=== PATIENT | male | born 1990 | race Caucasian/White ===

== ENCOUNTER 2016-11-02 17:22 | Emergency (ER) | payer OTHER ==
[~2016-11-02] VITALS: Ht 177.8 cm; Wt 75.0 kg
[~2016-11-02 17:22] MED LIST: LORT7.5T3; VALT1TAB26; ZOVI800T13
[2016-11-02 17:24] VITALS: BP 148/81; PULSE 57; RESP 17; TEMP 97.6; O2SAT 100
[2016-11-02] MEDS ORDERED: SODIUM CHLOR 0.9% 1000 ML INJ 1,000 ML IV ONE ×3 (18:25→20:15)
[2016-11-02] MEDS ORDERED: HYDROmorphone HCL PF 1 MG/ML VIAL IVS ONE (18:30)
[2016-11-02] MEDS ORDERED: ONDANSETRON HCL 4 MG/2 ML VIAL IVP ONE (18:30)
[2016-11-02] MEDS ORDERED: SODIUM CHLORIDE 0.9% FLUSH 10 ML FLUSH IVF PRN (18:30)
[2016-11-02 18:43] LABS: AUTOMATED NEUTROPHIL # 11.3 TH/MM3 (1.8-7.7); BASOPHIL # 0.1 TH/MM3 (0-0.2); BASOPHIL % 0.4 % (0.0-2.0); EOSINOPHIL # 0.2 TH/MM3 (0-0.4); EOSINOPHIL % 1.1 % (0.0-4.0); HEMATOCRIT 42.5 % (39.0-51.0); HEMO FLAGS DIFF FINAL; LYMPH % 8.7 % (9.0-44.0); LYMPHOCYTE # 1.2 TH/MM3 (1.0-4.8); MEAN CELL VOLUME 88.7 FL (80.0-100.0); MEAN CORPUSCULAR HEMOGLOBIN 29.6 PG (27.0-34.0); MEAN CORPUSCULAR HGB CONC 33.4 % (32.0-36.0); MONO % 6.8 % (0.0-8.0); PLATELET COUNT 162 TH/MM3 (150-450); RED BLOOD COUNT 4.79 MIL/MM3 (4.50-5.90); WHITE BLOOD COUNT 13.6 TH/MM3 (4.0-11.0)
[2016-11-02 19:38] LABS: BICARBONATE 27.6 MEQ/L (21.0-32.0); POTASSIUM 4.4 MEQ/L (3.5-5.1)
--- NOTE | 2016-11-02 19:46 | PD ---
HPI Chief Complaint: Flank/Kidney Pain Time Seen by Provider: 17:58 Travel History International Travel<30 days: No Contact w/Intl Traveler<30days: No Traveled to known affect area: No History of Present Illness HPI This is a 26-year-old gentleman with history of Olea sarcoma of the right rib, who presents today with complaint of left sided flank pain with radiation to his groin. Patient reports that came on suddenly yesterday. He reports it as a sharp stabbing pain. He reports associated nausea and vomiting. There is no reported fevers, chills. There are no other symptoms. The patient denies any changes in his urine output or color. PFSH Past Medical History Autoimmune Disease: No Blood Disorders: No Anxiety: No Depression: No Cancer: Yes (OLEA SARCOMA) Cardiovascular Problems: No Genitourinary: No Neurologic: No Psychiatric: No Respiratory: No Sickle Cell Disease: No Tetanus Vaccination: < 5 Years Past Surgical History Abdominal Surgery: Yes (INGUENIAL HERNEA) Cardiac Surgery: No Ear Surgery: No Endocrine Surgery: No Eye Surgery: No Genitourinary Surgery: No Gynecologic Surgery: No Neurologic Surgery: No Oral Surgery: No Thoracic Surgery: No Other Surgery: Yes (hypospadius,ing hernia, frozen section) Social History Alcohol Use: No Tobacco Use: No Substance Use: No Allergies-Medications (Allergen,Severity, Reaction): Coded Allergies: No Known Allergies (Verified , 11/02/16) Reported Meds & Prescriptions Reported Meds & Active Scripts Active Lortab (Hydrocodone-Acetaminophen) 5-325 Mg Tab 1 Tab PO Q6H PRN Flomax (Tamsulosin HCl) 0.4 Mg Cap 0.4 Mg PO HS Review of Systems Except as stated in HPI: all other systems reviewed are Neg General / Constitutional: No: Chills Gastrointestinal: Positive: Nausea, Vomiting Musculoskeletal: Positive: Pain (left flank pain), No: Myalgias Physical Exam Narrative GENERAL: Well-nourished, well-developed patient. SKIN: Focused skin assessment warm/dry. HEAD: Normocephalic atraumatic. EYES: No scleral icterus. No injection or drainage. NECK: Supple, trachea midline. CARDIOVASCULAR: Regular rate and rhythm without murmurs, gallops, or rubs. RESPIRATORY: Breath sounds equal bilaterally. No accessory muscle use. GASTROINTESTINAL: Abdomen soft, non-tender, nondistended. BACK: Nontender without obvious deformity. No no true CVA tenderness. NEUROLOGICAL: Awake and alert. Cranial nerves II through XII intact. Motor grossly within normal limits. Five out of 5 muscle strength in all muscle groups. Normal speech. Data Data Last Documented VS Vital Signs Date Time Temp Pulse Resp B/P Pulse Ox O2 Delivery O2 Flow Rate FiO2 11/02/16 20:20 78 20 132/80 99 11/02/16 17:24 97.6 Orders Complete Blood Count With Diff (11/02/16 18:25) Basic Metabolic Panel (Bmp) (11/02/16 18:25) Urinalysis - C+S If Indicated (11/02/16 18:25) Ecg Monitoring (11/02/16 18:25) Iv Access Insert/Monitor (11/02/16 18:25) Ondansetron Inj (Zofran Inj) (11/02/16 18:30) Sodium Chloride 0.9% Flush (Ns Flush) (11/02/16 18:30) Sodium Chlor 0.9% 1000 Ml Inj (Ns 1000 M (11/02/16 18:25) Hydromorphone Pf Inj (Dilaudid Pf Inj) (11/02/16 18:30) Sodium Chlor 0.9% 1000 Ml Inj (Ns 1000 M (11/02/16 19:15) Sodium Chlor 0.9% 1000 Ml Inj (Ns 1000 M (11/02/16 20:15) Ct Abd/Pel W/O Iv Contrast (11/02/16 20:11) Tamsulosin (Flomax) (11/02/16 21:15) Labs Laboratory Tests Test 11/02/16 11/02/16 18:35 19:40 White Blood Count 13.6 TH/MM3 Red Blood Count 4.79 MIL/MM3 Hemoglobin 14.2 GM/DL Hematocrit 42.5 % Mean Corpuscular Volume 88.7 FL Mean Corpuscular Hemoglobin 29.6 PG Mean Corpuscular Hemoglobin 33.4 % Concent Red Cell Distribution Width 13.0 % Platelet Count 162 TH/MM3 Mean Platelet Volume 9.1 FL Neutrophils (%) (Auto) 83.0 % Lymphocytes (%) (Auto) 8.7 % Monocytes (%) (Auto) 6.8 % Eosinophils (%) (Auto) 1.1 % Basophils (%) (Auto) 0.4 % Neutrophils # (Auto) 11.3 TH/MM3 Lymphocytes # (Auto) 1.2 TH/MM3 Monocytes # (Auto) 0.9 TH/MM3 Eosinophils # (Auto) 0.2 TH/MM3 Basophils # (Auto) 0.1 TH/MM3 CBC Comment DIFF FINAL Differential Comment Sodium Level 140 MEQ/L Potassium Level 4.4 MEQ/L Chloride Level 105 MEQ/L Carbon Dioxide Level 27.6 MEQ/L Anion Gap 7 MEQ/L Blood Urea Nitrogen 27 MG/DL Creatinine 1.97 MG/DL Estimat Glomerular Filtration 41 ML/MIN Rate Random Glucose 101 MG/DL Calcium Level 9.5 MG/DL Urine Color YELLOW Urine Turbidity CLEAR Urine pH 6.5 Urine Specific [place] 1.019 Urine Protein TRACE mg/dL Urine Glucose (UA) NEG mg/dL Urine Ketones 10 mg/dL Urine Occult Blood LARGE Urine Nitrite NEG Urine Bilirubin NEG Urine Urobilinogen 2.0 MG/DL Urine Leukocyte Esterase TRACE Urine RBC 174 /hpf Urine WBC 4 /hpf Urine Squamous Epithelial 1 /hpf Cells Urine Hyaline Casts 1 /lpf Urine Mucus FEW /lpf Microscopic Urinalysis Comment CULT NOT INDICATED MDM Medical Decision Making Medical Screen Exam Complete: Yes Emergency Medical Condition: Yes Differential Diagnosis Pyelonephritis versus renal calculus versus musculoskeletal pain Narrative Course 26-year-old male with a history of Olea sarcoma on the right rib, presents to quite a left sided flank pain with radiation to his groin. The patient was noted to be dehydrated on exam. The patient was given 3 L of IV fluid. Urinalysis showed multiple red blood cells. CT scan of the and pelvis without contrast shows a right 3 mm stone at the left UVJ resulting in mild left sided obstructive uropathy. I've informed both the patient and his mother that this should pass. He'll be given a urine strainer and told to drink plenty of fluids. He is instructed to follow up with a urologist if the pain persists. He does have a history of renal sufficiency. Given this and his elevated creatinine from that, we will not use NSAIDs for his pain. He will be given a prescription for Lortab. He is instructed not to drive or drink alcohol taking this medication. He'll also be given a prescription for Flomax first dose given in the ED. Diagnosis Primary Impression: left 3 mm UVJ kidney stone. Additional Impression: Renal insufficiency Med/Other Pt SpecificInfo: Prescription(s) given Scripts Hydrocodone-Acetaminophen (Lortab)5-325 Mg Tab1 Tab PO Q6H PRN (PAIN) #20 TAB Ref 0 Prov:Zackary Garcia MD 11/02/16 Tamsulosin (Flomax)0.4 Mg Cap0.4 Mg PO HS #10 CAP Ref 0 Prov:Zackary Garcia MD 11/02/16 Disposition: 01 DISCHARGE HOME Condition: Stable Zackary Garcia MD Nov 02, 2016 19:46
[2016-11-02 20:07] LABS: BLOOD, URINE LARGE (NEG); COMMENT (UR) CULT NOT INDICATED; CULTURE IF INDICATED CULT NOT INDICATED; GLUCOSE,URINE NEG (NEG); HYALINE CAST, URINE 1 /lpf (RARE); KETONE, URINE 10 mg/dL (NEG); MUCUS URINE FEW /lpf (OCC); NITRITE,URINE NEG (NEG); PH, URINE 6.5 (5.0-8.5); SQUAMOUS EPITHELIAL CELL URINE 1 /hpf (0-5); URINE COLOR YELLOW (YELLW/STRAW)
[2016-11-02 20:20] VITALS: BP 132/80; PULSE 78; RESP 20; O2SAT 99
--- NOTE | 2016-11-02 21:07 | RADRPT ---
EXAM DATE/TIME: 11/02/2016 20:42 [facility] COMPARISON: No previous studies available for comparison. INDICATIONS : "stabbing" left flank pain starting this morning. ORAL CONTRAST: No oral contrast ingested. RADIATION DOSE: 6.69 CTDIvol (mGy) MEDICAL HISTORY : Roth sarcoma SURGICAL HISTORY : Inguinal hernia repair. ENCOUNTER: Initial ACUITY: 1 day PAIN SCALE: 7/10 LOCATION: Left flank TECHNIQUE: Volumetric scanning of the abdomen and pelvis was performed. Using automated exposure control and ad justment of the mA and/or kV according to patient size, radiation dose was kept as low as reasonably achievable to obtain optimal diagnostic quality images. FINDINGS: Lung bases demonstrate atelectasis. There is an approximately 3 mm calculus at the left ureterovesical junction with mild left hydronephr osis, perinephric stranding and mild obstructive uropathy. No acute findings in the liver, spleen, adrenals, pancreas. The right kidney is atrophic. No calcifie d gallstones. Mild constipation. CONCLUSION: 1. 3 mm calculus at left UVJ resulting in a mild left-sided obstructive uropathy. Adair Israel MD on November 02, 2016 at 21:02 Board Certified Radiologist. This report was verified electronically.
[2016-11-02] MEDS ORDERED: TAMS5CAP PO (21:13)
[2016-11-02] MEDS ORDERED: TAMSULOSIN HCL 0.4 MG CAP PO ONE (21:15)
[2016-11-02] MEDS ORDERED: HYDR-3533 PO (21:19)
== END 2016-11-02 22:51 | disposition home or self-care (01) ==
LOC: NEPD 17:22
DX: N20.0 Calculus of kidney (principal); N28.9 Disorder of kidney and ureter, unspecified; R11.2 Nausea with vomiting, unspecified
CPT/HCPCS: 74176; 80048; 81001; 85025; 96361; 96374; 96375; 99284; J1170; J2405; J7030